=== PATIENT | male | born 1945 | race Caucasian/White ===

== ENCOUNTER 2024-09-08 16:16 | Inpatient (IN) | payer MEDICARE, OTHER ==
[~2024-09-08] VITALS: Ht 177.8 cm; Wt 85.0 kg
[2024-09-08] MEDS ORDERED: LACTATED RINGER'S 1,000 ML IV SCH ×2 (16:45→19:15)
[2024-09-08 17:04] VITALS: BP 135/67
--- NOTE | 2024-09-08 17:15 | NUR ---
PT ARRIVED ON THE FLOOR AMBALATORY. DIRECT ADMIT FOR DR JAMES. LABS DRAWN AND SENT TO LAB. IV PLACED IN LEFT HAND. NO SIGNIFICANT MEDICAL HISTORY, EXCEPT GLAUCOMA WHICH IS TREATED WITH EYE DROPS. SURGICAL HISTORY OF NECK FUSION AND SHOULDER REPLACEMENT. PATIENT DRESSED IN GOWN. SPOUSE PALLAVI AT BEDSIDE. PERSONAL BELONGINGS WITH SPOUSE OR WITH HIM. PT IS NPO.
[2024-09-08 17:19] LABS: BASOPHILS 0.5 % (0-2); EOSINOPHILS 1.7 % (0-6); HEMATOCRIT 40.9 % (35.0-50.0); HEMOGLOBIN 14.2 g/dL (12.0-18.0); LYMPHOCYTES 15.5 % (24-44); MCH 29.5 (27-36); MCHC 34.6 g/dl (30-36); MCV 85.3 fl (81-99); MONOCYTES 11.2 % (0-12); NEUTROPHILS 71.1 % (39-80); PLATELET COUNT 286 K/uL (140-440); RDW 13.2 (10.5-15.0)
[2024-09-08] MEDS ORDERED: ATORVASTATIN CA80 MG PO (17:27)
[2024-09-08] MEDS ORDERED: OMEPRAZOLE20 MG PO (17:27)
[2024-09-08] MEDS ORDERED: LOSARTAN-HCTZ1 EAC1 PO (17:28)
[2024-09-08] MEDS ORDERED: METOPROLOL SUC100 MG PO (17:29)
[2024-09-08] MEDS ORDERED: LATANOPROST2.5 ML OP (17:30)
[2024-09-08 17:31] LABS: INR 0.97 (0.80-1.30); PROTIME 12.8 Sec (11.2-14.2)
[2024-09-08] MEDS ORDERED: DORZOLAMIDE-TIM10 ML OP (17:32)
[2024-09-08] MEDS ORDERED: NYSTATIN15 GM TOP (17:33)
[2024-09-08 17:36] LABS: ALBUMIN 3.7 g/dL (3.4-5.0); ALBUMIN/GLOBULIN RATIO 1.03 (1.1-2.4); ANION GAP 15.6 (7-21); BILIRUBIN, TOTAL 0.4 mg/dL (0.2-1.0); BUN/CREATININE RATIO 21.89 (6.0-28.6); CALCIUM 9.2 mg/dL (8.5-10.1); CREATININE, SERUM 1.69 mg/dL (0.70-1.30); POTASSIUM 3.6 mmol/L (3.5-5.1); PROTEIN, TOTAL 7.3 g/dL (6.4-8.2)
[2024-09-08] MEDS ORDERED: LACTATED RINGER'S 1,000 ML IV ONE (17:45)
[2024-09-08] MEDS ORDERED: VITAMIN D325 MCG PO (17:50)
[2024-09-08] MEDS ORDERED: TYLENOL325 MG PO (17:50)
--- NOTE | 2024-09-08 17:55 | NUR ---
medications reconciled using pharmacy records and patient interview
--- NOTE | 2024-09-08 18:00 | NUR ---
PATIENT IS IN BED AT THIS TIME, OXYGRAPH OPERATOR CHARTED OUTPUT. IS IN THE ROOM WITH HIM VISITING, CALL LIGHT WITH IN REACH AND NOTHING ELSE NEEDED AT THIS TIME.
[2024-09-08] MEDS ORDERED: MORPHINE SULFATE 10 MG/ML VIAL IV PRN (19:15)
[2024-09-08] MEDS ORDERED: ondansetron HCL 4 MG/2 ML VIAL IV PRN (19:15)
[2024-09-08] MEDS ORDERED: METOPROLOL SUCCINATE 100 MG TABCR PO SCH (19:18)
--- NOTE | 2024-09-08 19:42 | NUR ---
RECEIVED REPORT FROM HILARIO MERCER. PT RESTING IN BED, REQUESTS HS SNACK. CL LIQ DIET NOTED, PT GIVEN APPLE JUICE AND JELLO. NO FURTHER NEEDS OR CONCERNS.
[2024-09-08] MEDS ORDERED: MEROPENEM 500 MG VIAL ONE (19:50)
--- NOTE | 2024-09-08 19:50 | NUR ---
PT RESTING IN BED. ORIENTED X 4. VSS. DENIES PAIN. LSC. HRR. BTA. LBM TODAY. VOIDS WNL. LH IV INFUSING LR @ 85MLS/HR. PT SBA W/ AMBULATION FOR LINE MANAGEMENT. PT TO BE NPO AT MIDNIGHT, TOLERATED HS SNACK OF APPLE JUICE AND JELLO. CALL LIGHT WITHIN REACH.
[2024-09-08 19:53] VITALS: BP 154/71
[2024-09-08] MEDS ORDERED: MEROPENEM 500 MG in SODIUM CHLORIDE 0.9% 100 ML IV SCH (20:00)
[2024-09-08] MEDS ORDERED: FAMOTIDINE 20 MG/ 2 ML VIAL IV SCH ×2 (21:00)
[2024-09-08 21:05] VITALS: BP 154/71
[2024-09-08] MEDS ORDERED: ACETAMINOPHEN 500 MG TAB PO SCH (22:00)
[2024-09-08] MEDS ORDERED: MEROPENEM 1,000 MG in SODIUM CHLORIDE 0.9% 100 ML IV SCH (22:00)
--- NOTE | 2024-09-08 22:11 | NUR ---
PT AWAKE, DENIES PAIN. 2200 DOSE TYLENOL ADMINISTERED. SCD'S APPLIED PER ORDER.
[2024-09-09] VITALS (11 sets, daily range): BP systolic 123–153; BP diastolic 60–72
--- NOTE | 2024-09-09 00:37 | NUR ---
PT AWAKE, SLEEPING BETWEEN CARE. PT IS NOW NPO FOR SURGERY. ROOM TEMP DECREASED PER PT REQUEST.
--- NOTE | 2024-09-09 01:07 | NUR ---
CLINICAL CASE MANAGER OBTAINED VITALS AND I&O. PT STATES NO NEEDS AT THIS TIME. CALL LIGHT WITHIN REACH.
[2024-09-09] MEDS ORDERED: MEROPENEM 500 MG VIAL ONE ×2 (01:43→08:08)
--- NOTE | 2024-09-09 02:15 | NUR ---
PT AWAKE, SLEEPING BETWEEN CARE. DENIES NEEDS AT THIS TIME. IV ATB INFUSING.
--- NOTE | 2024-09-09 03:26 | NUR ---
PT SLEEPING SOUNDLY. APPEARS COMFORTABLE.
--- NOTE | 2024-09-09 05:20 | NUR ---
PT AWAKE, DENIES NEEDS OR CONCERNS AT THIS TIME. PT REMAINS NPO FOR PROCEDURE TODAY. BTA, DENIES NAUSEA. DENIES ABD PAIN. IVF INFUSING.
--- NOTE | 2024-09-09 05:28 | NUR ---
CORE FILER OBTAINED VITALS. PT STATES NO NEEDS AT THIS TIME. CALL LIGHT WITHIN REACH.
[2024-09-09 05:38] LABS: BASOPHILS 0.5 % (0-2); EOSINOPHILS 2.2 % (0-6); HEMATOCRIT 35.8 % (35.0-50.0); HEMOGLOBIN 12.5 g/dL (12.0-18.0); LYMPHOCYTES 16.3 % (24-44); MCH 29.7 (27-36); MCV 84.7 fl (81-99); MONOCYTES 11.4 % (0-12); NEUTROPHILS 69.6 % (39-80); PLATELET COUNT 184 K/uL (140-440); RBC 4.23 M/ul (4.3-5.7); RDW 13.3 (10.5-15.0)
[2024-09-09 05:52] LABS: ALBUMIN/GLOBULIN RATIO 0.97 (1.1-2.4); ANION GAP 10.7 (7-21); BILIRUBIN, TOTAL 0.4 mg/dL (0.2-1.0); BUN/CREATININE RATIO 19.72 (6.0-28.6); CALCIUM 9.1 mg/dL (8.5-10.1); CREATININE, SERUM 1.47 mg/dL (0.70-1.30); POTASSIUM 3.7 mmol/L (3.5-5.1); PROTEIN, TOTAL 6.1 g/dL (6.4-8.2)
--- NOTE | 2024-09-09 07:19 | NUR ---
RECIEVED BEDSIDE REPORT FROM HILARIO STANTON. PT IS RESTING COMFORTABLY, BREATHING EVEN AND UNLABORED. HE HAS BEEN NPO SINCE MIDNIGHT.
--- NOTE | 2024-09-09 08:30 | NUR ---
PT CALL LIGHT ON, PT OUT OF BED AND AMBULATING TO THE BATHROOM. SITTING UP IN CHAIR AT THIS TIME, WARM BLANKET PROVIDED. IV FLUIDS INFUSING. PT DIET FOR CLEARS THIS MORNING, PT SUPPOSED TO GO TO SURGERY TODAY, CALL TO DR. JAMES TO CLARIFY THIS ORDER THIS MORNING, TRAY SET ASIDE UNTIL CLARIFIED. VM LEFT, MD DID NOT ANSWER - AWAITING RETURN CALL. PRIMARY RN UPDATED. CALL LIGHT WITHIN REACH, DENIES ANY FURTHER NEEDS AT THIS TIME.
--- NOTE | 2024-09-09 08:39 | NUR ---
REMOVED CLEAR LIQUID TRAY UNTIL CONFIRMATION FROM DR JAMES. WILL REORDER A TRAY IF NEEDED. ENCOURAGED PT TO GET UP AND WALK THE HALLS. EDUCATION PROVIDED ON WALKING WILL ASSIST WITH SURGERY RECOVERY AND LIMIT NEED FOR SCDS WHILE AT REST. PT WILL CALL WHEN HE IS READY TO WALK.
[2024-09-09] MEDS ORDERED: FAMOTIDINE 20 MG TAB PO SCH (09:00)
--- NOTE | 2024-09-09 09:45 | NUR ---
Spoke with Jagjit and his , Shama. Pt states he is very active. They live in a 1 story home with 2 steps. He does not use any DME. They deny any fiancial issues or saftey issues. will assist pt if needed. Both if them drive.
[2024-09-09] MEDS ORDERED: DORZOLAMIDE HCL/TIMOLOL MALEAT 10 ML PLCT OU SCH (10:00)
--- NOTE | 2024-09-09 11:05 | NUR ---
PT IS OFF THE FLOOR FOR SURGERY. SENT PARTIAL DOSE OF LONG INFUSION MEREPEM WIHT HIM. FAMILY WILL GO HOME FOR A WHILE AND WILL RETURN TO DAY SURGERY AREA. ALL QUESTIONS WERE ANSWERED.
[2024-09-09] MEDS ORDERED: ACETAMINOPHEN 1,000 MG/100 ML VIAL ONE (11:23)
[2024-09-09] MEDS ORDERED: ondansetron HCL 4 MG/2 ML VIAL ONE (11:23)
[2024-09-09] MEDS ORDERED: propofoL 200 MG/20 ML VIAL ONE (11:23)
[2024-09-09] MEDS ORDERED: DEXAMETHASONE SOD PHOS 4 MG/ML VIAL ONE (11:23)
[2024-09-09] MEDS ORDERED: LIDOCAINE HCL 2% 5 ML SDV ONE (11:23)
[2024-09-09] MEDS ORDERED: ROCURONIUM BROMIDE 50 MG/5 ML SYR ONE (11:23)
[2024-09-09] MEDS ORDERED: LIDOCAINE HCL 1% 30 ML SDV ONE (11:23)
--- NOTE | 2024-09-09 11:25 | NUR ---
PT NOT AVAILABLE FOR VISIT. PROVIDED PRAYER.
[2024-09-09] MEDS ORDERED: KETAMINE in NS 50 MG/5 ML SYR ONE (11:28)
[2024-09-09] MEDS ORDERED: fentaNYL citrate 100 MCG/2 ML VIAL ONE (11:31)
[2024-09-09] MEDS ORDERED: ePHEDrine sulfate 50 MG/ML AMP ONE (11:52)
[2024-09-09] MEDS ORDERED: SUGAMMADEX SODIUM 200 MG/2 ML ML ONE (12:39)
--- NOTE | 2024-09-09 13:14 | NUR ---
09/09/24 1314 Sheets,Radha 1302 PT ARRIVED TO PACU, RESP EVEN AND UNLABORED. PT STARTS REACHING FOR HIS FACE AND RN STARTS TO REORIENT PT TO PACU. 1303 O2 MASK REMOVED AND TISSUE USED TO WHIPE PT EYES, PT SLOWLY OPENLY HIS EYES. 1305 PT BLOWING HIS NOSE, PT DENIES PAIN AND NAUSEA. DEEP BREATHING AND COUGHING ENCOURAGED. GOWN CHANGED AND WARM BLACKETS GIVEN DUE TO PINK DRAINAGE NOTED ON GOWN AND BLANKETS.
--- NOTE | 2024-09-09 13:57 | NUR ---
UR CLINICAL REVIEW: 2MN KARYN, MEETS INPT FOR APPENDICITIS WITH ABSCESS NEED FOR IV MEDS AND SURGICAL INTERVENTION MEDICARE INPT 09/08/2024 @ 1649 ORDER MATCHES REG NO AUTH REQUIRED PER MEDICARE RULES DC TO HOME WHEN MEDICALLY STABLE.
--- NOTE | 2024-09-09 14:06 | NUR ---
PATIENT ARRIVED BACK FROM SURGERY AT 1350, VS STABLE. SATS 97% ON RA. LAP SITES CDI WITH STERISTRIPS, GAUZE DRESSING IN PLACE OVER X2, WHICH IN CDI. PT/ IN ROOM AT THIS TIME, INFORMED OF THE CANCEROUS FINDINGS DURING SURGERY AND PROVIDER DID ALREADY DISCUSS PROCEDURE/RESULTS AT THIS TIME. INFORMED AGAIN BIOPSIES WERE TAKEN. PICTURES GIVEN TO PT/ FOR THEIR RECORDS. PT GIVEN TRAY OF LIQUIDS POST-OP, SEE HOW HE TOLERATES. CALL LIGHT WITHIN REACH, DENIES FURTHER NEEDS AT THIS TIME.
--- NOTE | 2024-09-09 14:32 | NUR ---
PT RETURNED FROM THE PACU WITH HILARIO KAUR. LADARIUS MCCARTNEY RN TOOK FIRST REPORT AND VITALS. PER REPORT, PT HAS LAP SITES, ONE IS DRAINING DUE TO COPIOUS AMOUNTS OF IRRIGATION IN THE CASE. THAT SITE IS LEAKING QUITE A BIT. ALL OTHERS C/D/I. PT STATED THAT HE "WOULD LIKE TO STAY ANOTHER NIGHT IF HE HAS A VOTE". NOTE LEFT FOR DR JAMES. PT TOLERATED A CLEAR LIQUID TRAY, DENIES NAUSEA AT THIS TIME. DENIES PAIN. ORDERED TYLENOL HELD BECAUSE HE GOT SOME IN THE OR. 25ML URINE OUT IN CASE, 10 EBL, 750ML IVF IN CASE. RECIEVED TYLENOL, TORADOL, AND KETAMINE IN THE CASE.
--- NOTE | 2024-09-09 15:30 | NUR ---
PT AND HIS SON ARE IN ROOM, NO NEEDS AT THIS TIME. PT IS SITTING UP IN CHAIR.
--- NOTE | 2024-09-09 15:57 | EKG ---
[facility] [address] [facility] [place] [address] Signed Sinus rhythm with 1st degree AV block Otherwise normal ECG No previous ECGs available Confirmed by Jake Martel MD () on 09/09/2024 3:57:37 PM Electronically Signed By: JAKE MARTEL MD 09/09/24 1557 PATIENT NAME: VICENTA AZAR Electrocardiogram DATE OF : 45 PHYSICIAN: JAKE MARTEL MD REPORT #: [id number] REPORT IS CONFIDENTIAL AND NOT TO BE RELEASED WITHOUT AUTHORIZATION
--- NOTE | 2024-09-09 16:16 | NUR ---
CHECKED PT WOUNDS. HE IS STILL DRAINING BLOOD-TINGED FLUID FROM HIS LAP SITES. CENTER SITE HAS SCANT AMOUNT OF JOCELINE BLOOD. COVERED WITH ABD PAD AND REINFORCED WITH TAPE. PT IS WILLING TO TRY SOMEING HEAVIER FOR DINNER.
--- NOTE | 2024-09-09 17:01 | NUR ---
DRAINAGE FROM PT LAP SITES HAS REDUCED DRAMATICALLY. DRAINAGE HAS NOT COME THROUGH THE ABD PAD. ONCE PT IS BACK IN BED, WE WILL CLEAN UP THE SITES AND CHANGE THE GOWN. PT IS EATING DINNER.
[2024-09-09] MEDS ORDERED: SEVOFLURANE 250 ML BTL INH ONE (18:05)
--- NOTE | 2024-09-09 18:23 | NUR ---
PT WAS GOT IN BED. REDRESSED SITES AND CLEANED BLOOD OFF PT'S ABDOMEN. SITES ARE NO LONGER LEAKING. GOWN CHANGED. PT IS PLANNING ON GETTING BACK IN THE CHAIR SOON.
--- NOTE | 2024-09-09 19:31 | NUR ---
RECEIVED REPORT FROM HILARIO MERCER. PT UP AMBULATING IN ROOM IND. REPORTS CONTINUED DRNG TO UMBILICAL LAP SITE-SITE CLEANSED AND ABD DRSG PLACED FOR DRNG. NEW GOWN PER PT REQUEST.
--- NOTE | 2024-09-09 20:00 | NUR ---
PT UP IN RECLINER. VSS. DENIES PAIN. LSC. HRR. SCD'S OFF WHILE UP IN CHAIR AND AMBULATING IN ROOM. ABD SLIGHTLY DISTENDED, SOFT. NON-TENDER. DENIES NAUSEA. DENIES FLATUS. TOLERATING GEN DIET-ICE CREAM GIVEN PER REQUEST. 3 LAP SITES TO ABD W/ ABD OVER STERI STRIPS FOR SCANT SEROSANG DRNG. LH IV INFUSING LR PER EMAR. FRESH ICE WATER PROVIDED. DENIES ANY OTHER NEEDS OR CONCERNS AT THIS TIME.
[2024-09-09] MEDS ORDERED: LATANOPROST EYE DROPS OU SCH (21:00)
--- NOTE | 2024-09-09 22:00 | NUR ---
ROUTINE TYLENOL ADMINISTERED, PT DENIES PAIN. REPORTS BEING TIRED AND READY FOR BED. LIGHTS DIMMER PER PT REQUEST.
--- NOTE | 2024-09-10 00:58 | NUR ---
PT AWAKE, REPORTS HAVING SLEPT FOR A COUPLE HRS. DENIES NEEDS AT THIS TIME.
[2024-09-10 01:24] VITALS: BP 116/59
--- NOTE | 2024-09-10 01:27 | NUR ---
GUITAR REPAIRER OBTAINED VITALS AND I&O. PT STATES NO NEEDS AT THIS TIME. CALL LIGHT WITHIN REACH.
[2024-09-10 03:06] VITALS: BP 116/59
[2024-09-10 05:30] VITALS: BP 136/62
--- NOTE | 2024-09-10 05:32 | NUR ---
GUEST RELATIONS OFFICER OBTAINED VITALS AND I&O. PT STATES NO NEEDS AT THIS TIME. CALL LIGHT WITHIN REACH.
[2024-09-10 05:47] VITALS: BP 136/62
--- NOTE | 2024-09-10 05:49 | NUR ---
PT AWAKE, DENIES PAIN. 0600 TYLENOL ADMINISTERED PER EMAR. SURGICAL LAP SITE AT UMBILICUS STILL DRNG MOD AMT LIGHT SEROSANG DRNG. NEW ABD DRSG APPLIED.
--- NOTE | 2024-09-10 07:29 | NUR ---
RECIEVED BESIDE REPORT FROM HILARIO STANTON. PT IS AWAKE AND ALERT, SITTING UP IN THE CHAIR. DENIES PAIN OR NAUSEA, TOLERATED DINNER WELL, HAS HAD SNACKS. PASSING GAS. NO NEEDS AT THIS TIME.
--- NOTE | 2024-09-10 10:45 | NUR ---
REDRESSED ABDOMINAL SITE PER PT REQUEST. STERISTRIPS IN PLACE, INCISION LOOKS GOOD, NO REDNESS, SWELLING, OR MALODOROUS DRAINAGE. MODERATED AMOUNT OF SEROSANGIOUS DRAINAGE IN ABD PAD.
[2024-09-10] MEDS ORDERED: ACETAMINOPHEN500 MG PO (12:19)
[2024-09-10 13:31] VITALS: BP 125/68
[2024-09-11 00:06] LABS: CARCINOEMBRYONIC ANTIGEN 4.1 ng/mL (())
--- NOTE | 2024-09-11 12:26 | DS ---
[facility] [address] [place], [place] [address] Signed ADMISSION DATE: 09/08/2024 DISCHARGE DATE: 09/10/2024 REASON FOR ADMISSION: Right lower abdominal complex fluid collection, possible appendicitis with perforation. HISTORY OF PRESENT ILLNESS: This 78-year-old white man is patient of REMINGTON Sánchez. Approximately three weeks ago, he began having vague abdominal pain, not well localized otherwise characterized. He was treated empirically with PPI medication which of no benefit. He had a followup visit a week ago. He was having no focal abdominal pain, but generalized feeling of unwellness. He did not have nausea, vomiting, blood per rectum or hematemesis. His clinical examination was benign. On that basis, he underwent a CT scan of the abdomen on the day of admission at approximately 1:30 p.m.. This study was remarkable dominantly for ascites, possible liver nodularity, omentum with evidence of nodularity, gallstones without associated gallbladder cholecystitis and a complex fluid collection in the right lower abdomen near the appendix, which may or may not represent an inflammatory process including abscess, possibly related to perforated appendicitis. He had no generalized free air. On the basis of this, I had him directly admitted to the hospital for further evaluation and care. PERTINENT PHYSICAL EXAMINATION: GENERAL: A pleasant white man who did not look to be distressed particularly. VISTA SIGNS: Temperature was 98.1, pulse 73, blood pressure 135/67. HEENT: Mucous membranes are slightly dry. Trachea midline. CHEST: Clear. HEART: Regular without murmur. ABDOMEN: Somewhat distended and obese. There is no focal mass or tenderness in any way including at McBurney's point. EXTREMITIES: No clubbing, cyanosis, or edema. LABORATORY STUDIES: Showed a white count of 9.0, hematocrit 40.9, and platelets 286,000. Coag studies showed a creatinine of 1.69. Electrolytes otherwise normal. Glucose 144. Liver enzymes normal. Globulin was elevated at 3.6. CEA was obtained and not yet completed. Toxicology lab showed ethyl alcohol less than 3 mg/dL. Coag studies were normal with INR of 0.97. HOSPITAL COURSE: Electronically Signed By: KELSIE JAMES MD 09/11/24 1226 PATIENT NAME: VICENTA AZAR DISCHARGE SUMMARY DATE OF : 45 REPORT #: [id number] PHYSICIAN: KELSIE JAMES MD PCP: DERA HARPER REPORT IS CONFIDENTIAL AND NOT TO BE RELEASED WITHOUT AUTHORIZATION [facility] [address] [place] [id number] Signed The patient had a very discordant findings clinically from that of the radiograph (CT scan). He clearly did not have severe acute appendicitis though, the possibility of a chronic appendicitis with perforation and localization was considered. Concern was maintained for possible malignancy given the CT findings of ascites and omental abnormalities. A CEA was obtained, but has not yet been completed. Additionally a CA 19-9 was ordered. On September 09, 2024, he underwent laparoscopy. He was found to have generalized carcinomatosis. The liver itself looked normal. The gallbladder was mildly distended. Visualization of the cecum was not possible. There was extensive omental caking intermesenteric carcinomatosis and no sign of perforated viscus or abscess so far as could be told. Biopsies were taken of the abdominal cavity, peritoneal surfaces, and a wedge of omentum excised as well. Postoperatively, he did quite well. He had a small amount of ascites leak at the umbilicus despite a great efforts to maintain a watertight closure. I had a long discussion with him on the serious nature of these findings. The pathology report may inform plan of palliative treatment going forward. He does understand that this is an incurable problem. The underlying malignancy has yet to be identified. There is some possibility of peritoneal mesothelioma in addition to more common malignancies of colon, lung and pancreas. He will be discharged home to see me back in the next week or so after pathology report was returned. We will set up consultation with Dr. Lb Michael, medical oncologist to explore his options of palliative intervention. As of yet, the primary origin of the malignancy is uncertain. The CT scan showed half of the lung chau which appeared to be free of neoplastic change. The pancreas itself appeared normal as did other intraabdominal organs. The possibility of a malignancy of the cecum or appendix even remains though uncertain at this time. He is clearly asymptomatic from it. 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 DISCHARGE MEDICATIONS: 1. Tylenol 500 mg two tablets p.o. q.8 hours, p.r.n. pain #30. 2. Omeprazole 20 mg p.o. daily. 3. Atorvastatin 80 mg p.o. daily. 4. Losartan and hydrochlorothiazide 100/25 one p.o. daily. 5. Metoprolol 100 mg p.o. daily. 6. Latanoprost 0.005% eyedrops at bedtime one drop in each eye. Electronically Signed By: KELSIE JAMES MD 09/11/24 1226 PATIENT NAME: VICENTA AZAR DISCHARGE SUMMARY DATE OF : 45 REPORT #: [id number] PHYSICIAN: KELSIE JAMES MD PCP: DREA HARPER REPORT IS CONFIDENTIAL AND NOT TO BE RELEASED WITHOUT AUTHORIZATION [facility] [address] [place] [address] Signed 7. Dorzolamide and timolol eye drops, one drop ophthalmic b.i.d. 8. Vitamin D3 25 mcg, 1000 units daily. MD VENUS Matthew/AYESHAL /[id number] cc: MD Drea Freitas PA Copies: LB MICHAEL MD, LINDA PA ~ Electronically Signed By: KELSIE JAMES MD 09/11/24 1226 PATIENT NAME: VICENTA AZAR DISCHARGE SUMMARY DATE OF : 45 REPORT #: [id number] PHYSICIAN: KELSIE JAMES MD PCP: DREA HARPER REPORT IS CONFIDENTIAL AND NOT TO BE RELEASED WITHOUT AUTHORIZATION
--- NOTE | 2024-09-11 12:30 | HP ---
[facility] [address] [place], [place] [address] Signed ADMISSION DATE: 09/08/2024 REASON FOR ADMISSION: Right lower abdominal complex fluid collection, possible appendicitis with perforation. HISTORY OF PRESENT ILLNESS: This 78-year-old white man is patient of Drea Quigley. Approximately three weeks ago, he began having vague abdominal pain, which was not well localized nor well characterized otherwise. He was treated empirically with PPI medication, which was of no benefit. At his followup visit a week ago, he was having no focal abdominal pain, but generalized feeling of unwellness. He did not have nausea or vomiting, blood per rectum or hematemesis. His evaluation was uncertain as his clinical examination was benign generally speaking. On that basis, he underwent a CT scan of the abdomen today at approximately 1:30 p.m. This study was remarkable dominantly for ascites, liver with mild nodularity, omentum with some evidence of nodularity, gallstones which did not appear to be associated with cholecystitis, and a complex fluid collection in the right lower quadrant near the appendix, which may or may not represent an inflammatory process including abscess, possibly related to perforated appendicitis. He has no generalized free air. His situation is most remarkable in that he has no focal tenderness or even focal pain particularly. I was advised to the patient and recommended direct admission to the hospital on my service to allow for further evaluation and care. PAST MEDICAL HISTORY: Significant for alcohol, drinking at least two drinks daily. This has been going on until very recently. Review of his medical record shows that I did a colonoscopy on him for episodic rectal bleeding in 2005, essentially 20 years ago, showing internal hemorrhoids without evidence of polyps or cancer. FAMILY HISTORY: He has no family history of colon cancer though there is family history of breast cancer apparently. LABORATORY STUDIES: At admission at this time show a white count of 9.0, hematocrit of 40.9, platelets of 286,000. Coag studies are normal with INR of 0.97. Chem profile notable for an elevated creatinine of 1.69. The BUN of 37. Liver enzymes are normal. Albumin is 3.7. CEA is pending. Toxicology lab showed negative for ethyl alcohol. Electronically Signed By: KELSIE JAMES MD 09/11/24 1230 PATIENT NAME: VICENTA AZAR HISTORY AND PHYSICAL DATE OF : 45 REPORT #: [id number] PHYSICIAN: KELSIE JAMES MD PCP: DREA QUIGLEY REPORT IS CONFIDENTIAL AND NOT TO BE RELEASED WITHOUT AUTHORIZATION [facility] [address] [place], [place] [address] Signed SOCIAL HISTORY: He is and is retired. He does drink on a routine basis as previously noted. PHYSICAL EXAMINATION: GENERAL: Pleasant white man who does not look to be distressed particularly. VITAL SIGNS: Temperature is 98.1, pulse 73, blood pressure 135/67. HEENT: Mucous membranes are slightly dry. NECK: Trachea is midline. CHEST: Clear. HEART: Regular without murmur. ABDOMEN: Somewhat distended and obese. There is no focal mass or tenderness at all including at McBurney's point. EXTREMITIES: Show no clubbing, cyanosis, or edema. LABORATORY DATA: As previously noted. Imaging studies are noted as well. Characterization of his findings was that of moderate atherosclerotic vascular disease. Dilated veins in the upper and anterior abdomen (which are prominent on CT scan images), but not on clinical examination of his abdomen at this time, as well as a mild ascites and no free intraperitoneal air. The ureters and bladder appeared normal. The finding did include gas and debris-filled collection in the right lower quadrant measuring 4.5 cm x 2.5 cm along the suspected location of an inflamed appendix, which was difficult to clearly visualize. Fat stranding and ill-defined nodularity throughout the omentum was confirmed and nodularity along the peritoneal lining as well. ASSESSMENT: He does not have clinical criteria suggestive of appendicitis. I am concerned he may have underlying malignancy, possibly even disseminated given the appearance. He does not need emergency operation tonight, but rather fluid resuscitation, parenteral antibiotics and tomorrow a laparoscopy at minimum. This will be to ascertain the source of his ascites, confirm the health of his liver, assess his appendix and of course, check the omentum as well. I discussed all of this with the patient and his in detail and they understand. Risks associated with such an intervention, which might include bleeding, infection, ascites leak if an underlying persistent pathologic process and of course, need for open surgery. He understands all this and wished to proceed. Kelsie James MD Electronically Signed By: KELSIE JAMES MD 09/11/24 1230 PATIENT NAME: VICENTA AZAR HISTORY AND PHYSICAL DATE OF : 45 REPORT #: [id number] PHYSICIAN: KELSIE JAMES MD PCP: DREA QUIGLEY REPORT IS CONFIDENTIAL AND NOT TO BE RELEASED WITHOUT AUTHORIZATION [address] [address] Signed /[facility] /[id number] cc: REMINGTON Sánchez Copies: DREA QUIGLEY ~ Electronically Signed By: KELSIE JAMES MD 09/11/24 1230 PATIENT NAME: VICENTA AZAR HISTORY AND PHYSICAL DATE OF : 45 REPORT #: [id number] PHYSICIAN: KELSIE JAMSE MD PCP: DREA QUIGLEY REPORT IS CONFIDENTIAL AND NOT TO BE RELEASED WITHOUT AUTHORIZATION
--- NOTE | 2024-09-11 12:30 | OR ---
[facility] [address], [place] [address] Signed DATE OF OPERATION: 09/09/2024 SURGEON: Kelsie James MD PREOPERATIVE DIAGNOSES: 1. Possible appendicitis with periappendiceal complex fluid collection. 2. Ascites, nodular area of omentum, asymptomatic. POSTOPERATIVE DIAGNOSIS: Generalized carcinomatosis with omental involvement. PROCEDURES: 1. Laparoscopy. 2. Laparoscopic biopsy of peritoneal implants. 3. Laparoscopic partial omentectomy. 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 INDICATION: This 78-year-old white man is a patient of Drea Quigley and has had several weeks of not feeling well. Empiric treatment with PPI medication was ineffective. He underwent a CT scan of the abdomen under the direction of REMINGTON Sánchez yesterday where he was found to have a complex fluid collection in the right lower abdomen and suggestive of possible perforated appendicitis. Additionally, he had some ascites, questionable nodularity of the liver and absolute nodular of the omentum. A CEA lab test was obtained but is pending. Notably, patient has no complaints of focal abdominal pain and no tenderness on exam. He has been admitted, fluid resuscitated, given broad-spectrum antibiotics on the initial presumption of appendicitis of perforation, now to undergo a laparoscopy and other indicated procedures. He and his understand the risk of bleeding, infection, bowel injury, need for open procedure, and of course other indicated procedures for findings discovered and wished to proceed. FINDINGS: Ascites was not related to liver failure, so far as can be told it was related to carcinomatosis. Peritoneal implants were extensive and throughout the abdominal cavity. The liver itself looked reasonably normal. The cecum and appendix were never fully visualized. There was dense omental caking with obvious neoplastic involvement of the omentum. Operation consisted of decompression of the ascites fluid, peritoneal Electronically Signed By: KELSIE JAMES MD 09/11/24 1230 PATIENT NAME: VICENTA AZAR OPERATIVE REPORT DATE OF : 45 REPORT #: [id number] PHYSICIAN: KELSIE JAMES MD PCP: DREA QUIGLEY REPORT IS CONFIDENTIAL AND NOT TO BE RELEASED WITHOUT AUTHORIZATION [facility] [address], [place] [address] Signed biopsies, and partial omentectomy for diagnosis. DESCRIPTION OF PROCEDURE: The patient was brought to the operating room, given a general endotracheal anesthetic. Preoperative antibiotic meropenem had been given. Sequential compression device stockings were in place. A Lao catheter was placed. The abdomen was clipped and prepared with chlorhexidine solution and draped sterilely. An infraumbilical incision was made and using an open Holly cannula technique, the abdomen entered allowing for egress of some reasonably clear ascites fluid. Digital examination of the peritoneal cavity did reveal carcinomatosis. Pneumoperitoneum was achieved to a level of 14 mmHg of carbon dioxide gas. Intra-abdominal inspection was undertaken showing generalized carcinomatosis. An epigastric 12 mm port was placed allowing for placement of the suction device which sucked fluid that was surrounding the liver itself, was manipulated and found to have no evidence of neoplastic change. There was omental caking quite obviously noted and had a dense white peritoneal implants throughout. The right lower quadrant 5 mm port was placed with two hand manipulation and placement of the camera at the epigastric port. The right lower abdomen was interrogated. Dense omental caking to the abdominal wall in the region of the cecum was noted. There was no sign of purulence, infection, or other issue and further mobility of the cecum under the circumstances was deemed inadvisable, mettlesome and of no clinical use, considered he had absolutely no symptoms or tenderness on exam. Peritoneal biopsies were undertaken with the cup biopsy device. Using two hand manipulation, an appropriate segment of omentum was identified and although quite obviously involved with neoplasm. A segment was excised using Endo BEBO stapling device. Specimen was placed in an endobag and extracted through the infraumbilical port site and passed for permanent pathology. Irrigation was undertaken. Some Maria Elena was applied to the biopsy sites to assure us hemostasis. Plans were then made for closure. Trocars removed under direct visualization showing no sign of bleeding. Fascial layers were closed with interrupted 0 Vicryl suture and the skin closed with interrupted 3-0 Vicryl. A running 0 PDS was used to more securely close the infraumbilical port site to avoid any ascites leak. Steri-Strips were applied. The patient was ultimately extubated and transferred to the recovery room in good condition. CONCLUDING DIAGNOSIS: Carcinomatosis and omental caking, originating organ uncertain at this time. A CEA is pending. CA 19-9 will be obtained as well. Kelsie James MD Electronically Signed By: KELSIE JAMES MD 09/11/24 1230 PATIENT NAME: VICENTA AZAR OPERATIVE REPORT DATE OF : 45 REPORT #: [id number] PHYSICIAN: KELSIE JAMES MD PCP: DREA QUIGLEY REPORT IS CONFIDENTIAL AND NOT TO BE RELEASED WITHOUT AUTHORIZATION [facility] [address] [place], [place] [address] Signed /MODL /[id number] cc: REMINGTON Sánchez Copies: DREA QUIGLEY ~ Electronically Signed By: KELSIE JAMES MD 09/11/24 1230 PATIENT NAME: VICENTA AZAR OPERATIVE REPORT DATE OF : 45 REPORT #: [id number] PHYSICIAN: KELSIE JAMES MD PCP: DREA QUIGLEY REPORT IS CONFIDENTIAL AND NOT TO BE RELEASED WITHOUT AUTHORIZATION
[2024-09-11 15:03] LABS: CANCER ANTIGEN-GI (CA 19-9) 749 U/mL (<=35)
--- NOTE | 2024-09-14 15:30 | PATH ---
[address] [address] Signed SPECIMEN(S): A PERITONEAL BIOPSY SPECIMEN(S): B OMENTUM SPECIMEN SOURCE: A. PERITONEAL BIOPSY B. OMENTUM CLINICAL HISTORY: Ascites, peritoneal nodules FINAL PATHOLOGIC DIAGNOSIS: A. Peritoneum, biopsy: - Mucinous adenocarcinoma. B. Omentum: - Mucinous adenocarcinoma COMMENT: A panel of stains is performed (block B1) CK7: Positive CK20: Negative CA 19.9: Rare focal positive CDX2: Rare focal positive Villin: Dim positive TTF-1: Negative PSA: Negative GATA3: Focal dim positive D2-40: Negative Calretinin: Negative PAX8: Negative The primary site for the mucinous adenocarcinoma is unclear based on immunohistochemistry stains and morphology. Possibilities would include appendix, pancreas, cholangiocarcinoma, urachal adenocarcinoma, or pancreas. Clinical radiographic correlation is required. A diagnostic alert is initiated by Dr. Ortiz. JAY MICROSCOPIC EXAMINATION: Histologic sections of all submitted blocks are examined by light microscopy. These findings, together with the gross examination, support the pathologic diagnosis. PATIENT NAME: VICENTA AZAR PATHOLOGY DATE OF : 45 REPORT #: [id number] PHYSICIAN: HIPOLITO HARO PCP: DREA HARPER REPORT IS CONFIDENTIAL AND NOT TO BE RELEASED WITHOUT AUTHORIZATION [address] [address] Signed GROSS DESCRIPTION: A. The specimen, labeled and designated "Adonay, peritoneal biopsy," is received in formalin and consists of four irregular shaped fibromembranous tissue fragments that aggregate measure 1.5 x 1.0 x 0.4 cm. Sectioning through the nodules reveals pink-roberts homogenous tissue. Entirely submitted in (A1). B. The specimen, labeled and designated "Adonay, omentum," is received in formalin and consists of yellow-roberts, soft fibroadipose tissue fragment with measure 3.5 x 2.5 cm. It shows staple line as a surgical margin. The staple line is removed, and underlying tissue is inked black. The rest of the specimen is inked blue. Sectioning through the specimen to reveal pink-roberts homogenous tissue. Steel Melter sections are submitted in (B1-B2). JS (under the direct supervision of a pathologist) The Gross Description was prepared using a voice recognition system. The report was reviewed for accuracy; however, sound-alike word errors, addition and/or deletions may occur. If there is any question about this report, please contact Client Services. ADDITIONAL NOTES: Immunohistochemical and/or in situ hybridization studies if performed in this case included appropriate positive controls that reacted as expected. This test was developed and its performance characteristics determined by [facility]. It has not been cleared or approved by the U.S. Food and Drug Administration. The FDA has determined that such clearance or approval is not necessary. This test is used for clinical purposes. It should not be regarded as investigational or for research. [facility] is certified under the Clinical Laboratory Improvement Amendments of 1988 (CLIA) as qualified to perform high complexity clinical laboratory testing. PERFORMING LABORATORY: Technical component was performed by [facility], [address] [place] [id number] (CLIA# [id number]). Professional interpretation was performed by [facility], [address] [place] [id number] (CLIA#: [id number]). Diagnostician: Max Ortiz MD Pathologist PATIENT NAME: VICENTA AZAR PATHOLOGY DATE OF : 45 REPORT #: [id number] PHYSICIAN: HIPOLITO HARO PCP: DREA HARPER REPORT IS CONFIDENTIAL AND NOT TO BE RELEASED WITHOUT AUTHORIZATION [address] [address] Signed Electronically Signed 09/14/2024 Copies: ~ PATIENT NAME: VICENTA AZAR PATHOLOGY DATE OF : 45 REPORT #: [id number] PHYSICIAN: HIPOLITO HARO PCP: DREA HARPER REPORT IS CONFIDENTIAL AND NOT TO BE RELEASED WITHOUT AUTHORIZATION
== END 2024-09-10 13:36 | disposition home or self-care (01) | DRG 357 ==
LOC: MS 16:16
PROVIDERS: ADMIT Surgery; ATTEND Surgery
PROC: 0W9G4ZX Drainage of Peritoneal Cavity, Percutaneous Endoscopic Approach, Diagnostic (ICD-10-PCS; 2024-09-09)
PROC: 0DBU4ZZ Excision of Omentum, Percutaneous Endoscopic Approach (ICD-10-PCS; principal; 2024-09-09 11:15)
DX: K35.33 Acute appendicitis with perforation, localized peritonitis, and gangrene, with abscess (principal); C78.6 Secondary malignant neoplasm of retroperitoneum and peritoneum; R18.8 Other ascites; K80.20 Calculus of gallbladder without cholecystitis without obstruction
CPT/HCPCS: 00840; 36415; 36592; 80053; 82378; 85025; 85610; 86301; 88305; 88341; 88342; 93005; 93010; A9270; G0480; J0131; J1100; J2003; J2185; J2405; J2704; J3010; J3490; J7121

== ENCOUNTER 2024-10-02 14:30 | Emergency (ER) | payer MEDICARE, OTHER ==
[~2024-10-02] VITALS: Ht 177.8 cm; Wt 89.4 kg
[~2024-10-02 14:30] MED LIST: ACETAMINOPHEN500 MG PO; ATORVASTATIN CA80 MG PO; DORZOLAMIDE-TIM10 ML OP; LATANOPROST2.5 ML OP; LOSARTAN-HCTZ1 EAC1 PO; METOPROLOL SUC100 MG PO; NYSTATIN15 GM TOP; OMEPRAZOLE20 MG PO; TYLENOL325 MG PO; VITAMIN D325 MCG PO
[2024-10-02] MEDS ORDERED: LOSARTAN POTASS50 MG PO (15:34)
[2024-10-02] MEDS ORDERED: HYDROCODON-ACE1 EA10 PO (15:34)
[2024-10-02] MEDS ORDERED: LORAZEPAM1 MG PO (15:35)
[2024-10-02] MEDS ORDERED: ondansetron HCL 4 MG/2 ML VIAL IV ONE (16:00)
[2024-10-02] MEDS ORDERED: SODIUM CHLORIDE 0.9% 1,000 ML IV ONE ×2 (16:00→18:00)
[2024-10-02 16:14] LABS: BASOPHILS 0.2 % (0-2); EOSINOPHILS 0.5 % (0-6); HEMATOCRIT 35.3 % (35.0-50.0); HEMOGLOBIN 12.3 g/dL (12.0-18.0); LYMPHOCYTES 6.9 % (24-44); MCH 29.1 (27-36); MCHC 34.8 g/dl (30-36); MCV 83.6 fl (81-99); MONOCYTES 14.2 % (0-12); NEUTROPHILS 78.2 % (39-80); PLATELET COUNT 202 K/uL (140-440); RBC 4.22 M/ul (4.3-5.7); RDW 13.8 (10.5-15.0)
[2024-10-02 16:29] LABS: ALBUMIN/GLOBULIN RATIO 0.94 (1.1-2.4); ANION GAP 12.6 (7-21); BILIRUBIN, TOTAL 0.8 mg/dL (0.2-1.0); BUN/CREATININE RATIO 27.4 (6.0-28.6); CALCIUM 8.4 mg/dL (8.5-10.1); CREATININE, SERUM 2.08 mg/dL (0.70-1.30); POTASSIUM 3.6 mmol/L (3.5-5.1); PROTEIN, TOTAL 6.2 g/dL (6.4-8.2)
[2024-10-02 17:23] LABS: BILIRUBIN, URINE POSITIVE (negative); BLOOD/HGB, URINE NEGATIVE (Negative); KETONE, URINE TRACE (Negative); LEUK ESTERASE, URINE NEGATIVE (negative); NITRITE, URINE NEGATIVE (negative)
[2024-10-02] MEDS ORDERED: ONDANSETRON ODT8 MG PO (18:22)
[2024-10-02] MEDS ORDERED: ONDANSETRON 4 MG HOME.PACK SL ONE (18:30)
[2024-10-02 19:16] VITALS: BP 114/55
== END 2024-10-02 19:19 | disposition home or self-care (01) ==
LOC: ED 14:30
PROVIDERS: Emergency Medicine
DX: E86.0 Dehydration (principal); C48.2 Malignant neoplasm of peritoneum, unspecified; I10 Essential (primary) hypertension; K21.9 Gastro-esophageal reflux disease without esophagitis; Z79.899 Other long term (current) drug therapy
CPT/HCPCS: 36415; 80053; 81003; 83690; 85025; 96361; 96374; 99284-25; A9270; J2405; J7030

== ENCOUNTER 2024-10-16 21:39 | Emergency (ER) | payer MEDICARE, OTHER ==
[~2024-10-16] VITALS: Ht 175.3 cm; Wt 98.0 kg
[~2024-10-16 21:39] MED LIST changes: +HYDROCODON-ACE1 EA10 PO; +LORAZEPAM1 MG PO; +LOSARTAN POTASS50 MG PO; +ONDANSETRON ODT8 MG PO
--- OUTSIDE RECORDS SUMMARY | 2024-10-16 21:44 | XMS ---
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 Remy has no Care Guidelines for this patient. [place] [facility] MO[facility] NOTE: Visits indicate total known visits. ED/C VISIT TRACKING (12 MO.) 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
[2024-10-16] MEDS ORDERED: PROCHLORPERAZINE EDISYLATE 10 MG/2 ML VIAL IV ONE (21:45)
[2024-10-16] MEDS ORDERED: SODIUM CHLORIDE 0.9% 1,000 ML IV ONE (21:45)
[2024-10-16 22:06] LABS: BASOPHILS 0.3 % (0-2); EOSINOPHILS 0.7 % (0-6); HEMATOCRIT 35.8 % (35.0-50.0); HEMOGLOBIN 12.2 g/dL (12.0-18.0); LYMPHOCYTES 8.4 % (24-44); MCH 28.5 (27-36); MCHC 34.1 g/dl (30-36); MCV 83.4 fl (81-99); MONOCYTES 7.9 % (0-12); NEUTROPHILS 82.7 % (39-80); PLATELET COUNT 140 K/uL (140-440); RBC 4.29 M/ul (4.3-5.7); RDW 13.6 (10.5-15.0)
[2024-10-16 22:14] LABS: ALBUMIN 2.7 g/dL (3.4-5.0); ALBUMIN/GLOBULIN RATIO 0.77 (1.1-2.4); ANION GAP 17.5 (7-21); BILIRUBIN, TOTAL 0.7 mg/dL (0.2-1.0); BUN/CREATININE RATIO 25.48 (6.0-28.6); CALCIUM 9.2 mg/dL (8.5-10.1); CREATININE, SERUM 2.59 mg/dL (0.70-1.30); POTASSIUM 4.5 mmol/L (3.5-5.1); PROTEIN, TOTAL 6.2 g/dL (6.4-8.2)
[2024-10-16 22:38] LABS: ABO AB; ANTIBODY SCREEN NEGATIVE; RH NEGATIVE
[2024-10-17] MEDS ORDERED: METOCLOPRAMIDE HCL 10 MG/2 ML SDV IV ONE (01:00)
[2024-10-17] MEDS ORDERED: HYDROmorphone HCL 1 MG/ML SYR IV ONE (01:15)
[2024-10-17] MEDS ORDERED: PROMETHAZINE HC25 M1 PO (02:12)
[2024-10-17] MEDS ORDERED: OXYCODONE HCL5 MG PO (02:12)
[2024-10-17] MEDS ORDERED: ONDANSETRON ODT8 MG PO (02:12)
[2024-10-17] MEDS ORDERED: CIPROFLOXACIN 500 MG TAB PO ONE (02:15)
[2024-10-17] MEDS ORDERED: LASIX20 MG PO (02:16)
[2024-10-17] MEDS ORDERED: ONDANSETRON 4 MG HOME.PACK SL ONE (02:30)
[2024-10-17] MEDS ORDERED: OXYCODONE/ACETAMINOPHEN 1 TAB HOME.PACK PO ONE (02:30)
[2024-10-17 02:32] VITALS: BP 102/50
[2024-10-17 02:59] LABS: APPEARANCE, BODY FLUID CLEAR
[2024-10-17 03:10] LABS: WBC, BODY FLUID 393
[2024-10-17 03:11] LABS: RBC, BODY FLUID 895
[2024-10-17 03:14] LABS: PMNS, BODY FLUID 12
[2024-10-17 03:15] LABS: MONONUCLEAR CELLS, BODY FLUID 88
[2024-10-17 03:16] LABS: SOURCE, BODY FLUID ascitic fluid
== END 2024-10-17 02:42 | disposition home or self-care (01) ==
LOC: ED 21:39
PROVIDERS: Family Medicine
DX: R18.8 Other ascites (principal); C78.6 Secondary malignant neoplasm of retroperitoneum and peritoneum; C80.1 Malignant (primary) neoplasm, unspecified
CPT/HCPCS: 49083; 74176; 80053; 83690; 85025; 86850; 86900; 86901; 89051; 99285-25; A9270; C1713; J0780; J1171; J2765; J7030